=== PATIENT | male | born 1940 | race Hispanic/Latino ===

== ENCOUNTER 2016-11-07 14:44 | Outpatient (CLI) | payer MEDICARE ==
--- NOTE | 2016-11-07 15:33 | XRay Report ---
CHEST 2 VIEWS INDICATION: Cough. COMPARISON: None similar. FINDINGS: PA and lateral chest radiographs demonstrate mild cardiomegaly. Aortic knob calcifications. Clear lungs without pleural effusions or CHF. Right AICD with dual-chamber leads. Right hemidiaphragm minimally elevated. Demineralized bones. CONCLUSION: No acute disease, as described. Thank you for the opportunity to participate in this patient's care.
== END 2016-11-07 14:45 | disposition home or self-care (01) ==
LOC: SPVIMAG 14:44
PROVIDERS: ATTEND Internal Medicine
DX: R05 Cough (principal); I51.7 Cardiomegaly; I70.0 Atherosclerosis of aorta; J98.6 Disorders of diaphragm; Z95.811 Presence of heart assist device; I50.9 Heart failure, unspecified; N18.9 Chronic kidney disease, unspecified; I25.10 Atherosclerotic heart disease of native coronary artery without angina pectoris; E78.00 Pure hypercholesterolemia, unspecified
CPT/HCPCS: 71020